=== PATIENT | female | born 1965 | race Two or more races ===

== ENCOUNTER → 2016-08-13 | Outpatient (CLI) | payer OTHER ==
[2016-01-04 12:45] VITALS: BP 127/68
[~2016-08-13] MED LIST: ALPR1TAB2 PO; ASPI81TA44 PO; ATORVASTATIN CA80 MG PO; METO75TA PO; MV W1TAB PO; NORE1TAB23 PO; OMEG1CAP38 PO; PANT40TA3 PO
--- NOTE | 2016-08-13 13:03 | RAD ---
INDICATION: COUGH, DIARRHEA COMPARISON: 01/04/2016 FINDINGS: 2 views of chest obtained No definite focal airspace consolidation or pulmonary edema. Repeat demonstration of faintly seen nodular densities within the bilateral lungs. IMPRESSION: No new region of airspace consolidation. Faintly seen nodular densities of bilateral lungs. This is better evaluated on CT.
== END | disposition home or self-care (01) ==
LOC: RAD 11:15
PROVIDERS: ATTEND Physician Assistant Medical
DX: R05 Cough (principal); R19.7 Diarrhea, unspecified; Z85.118 Personal history of other malignant neoplasm of bronchus and lung
CPT/HCPCS: 71020

== ENCOUNTER → 2016-09-06 | Outpatient (CLI) | payer OTHER ==
[2016-01-04 12:45] VITALS: BP 127/68
--- NOTE | 2016-09-06 14:04 | KCIC ---
Bilateral digital screening mammograms with CAD: HISTORY Routine screening. COMPARISON Comparison is made to previous studies dated back to 07/16/2012. FINDINGS Breast density category B. The skin and nipples show no abnormalities. No abnormal lymph nodes are seen in the axilla. The breast parenchyma shows scattered fibroglandular density. There are no dominant masses, suspicious calcifications or architectural distortions. IMPRESSION No evidence of malignancy. Recommend routine annual mammographic screening. This study was interpreted with the benefit of Computerized Aided Detection (CAD). Mammography is not 100% sensitive in detecting breast cancer. Therefore, a self breast exam and a clinical breast exam are very important. A negative mammogram does not negate a clinically suspicious finding and should not result in a delay in biopsying a clinically suspicious abnormality. BI-RADS category 1. Negative. This patient's information has been entered into a reminder system for the patient to be notified with the results of this examination and a target date for her next mammograms. Electronically signed by: Yarelis Mishra MD (Sep 06, 2016 14:03:00)
== END | disposition home or self-care (01) ==
LOC: KCIC MAMMO 08:00
PROVIDERS: ATTEND Obstetrics & Gynecology
DX: Z12.31 Encounter for screening mammogram for malignant neoplasm of breast (principal)
CPT/HCPCS: G0202; 77067

== ENCOUNTER → 2017-02-15 | Outpatient (CLI) | payer OTHER ==
[2016-01-04 12:45] VITALS: BP 127/68
--- NOTE | 2017-02-15 10:18 | RAD ---
CT chest without contrast 02/15/2017 at 0835 hours Indication: Lung nodules follow-up Comparison: CT chest 05/14/2016, 02/06/2016, 12/05/2015 Technique: Multiple axial CT images of the chest were obtained without intravenous contrast. Coronal and sagittal reformats are provided. Findings: Thyroid gland is normal. No pathologically enlarged axillary lymph nodes are identified. There is a right precarinal lymph node measuring 10 mm by short axis. A subcarinal lymph node measures 14 mm by short axis. Prevascular lymph node measures 5 mm by short axis. Suspect right hilar lymph node measuring 9 mm by short axis. In the region of a previously 12 x 11 mm noncalcified pulmonary nodule on 12/15/2015 in the lingula, there is minimal residual 5 mm opacity. Additional solid pulmonary nodules are stable since 12/15/2015, as detailed below. In the right upper lobe there is a 5 x 5 mm solid noncalcified pulmonary nodule (series 3, image 69). In the right middle lobe there is a 6.4 x 6.1 mm solid noncalcified pulmonary nodule (series 3, image 147). There is an 8.0 x 7.4 cm solid noncalcified pulmonary nodule posterior right lower lobe (series 3, image 140). There is a solid noncalcified pulmonary nodule in the lingula measuring 6.4 x 5.8 mm (series 3, image 174). In the left upper lobe there is a 6.8 x 7.6 mm noncalcified pulmonary nodule (series 3, image 149). In the anterior left upper lobe there is a 7.3 mm x 7.5 mm solid noncalcified pulmonary nodule (series 3, image 174). No pulmonary infiltrates. No pulmonary vascular congestion or pneumothorax. Otherwise, lungs are clear. Cholecystectomy changes are identified in the right upper quadrant. There are no pathologically enlarged lymph nodes in the visualized upper abdomen. Focal sclerotic focus involving the right lateral fifth rib is noted (series 3, image 136), stable dating back to 05/14/2016. This finding measures 12 mm on sagittal views (series 6, image 94). Impression: 1. In the region of previously 12 x 11 mm noncalcified pulmonary nodule that was biopsied, there is 5 mm residual amorphous patchy opacity. 2. Additional solid noncalcified pulmonary nodules are stable, as detailed above. 3. Sclerotic focus involving the right lateral fifth rib is stable without associated aggressive features. If there is clinical concern, further evaluation with bone scan may be of benefit. PQRS Compliance Statement: One or more of the following individualized dose reduction techniques were utilized for this examination: 1. Automated exposure control 2. Adjustment of the mA and/or kV according to patient size 3. Use of iterative reconstruction technique
== END | disposition home or self-care (01) ==
LOC: CT 08:20
PROVIDERS: ATTEND Internal Medicine Pulmonary Disease
DX: R91.8 Other nonspecific abnormal finding of lung field (principal)
CPT/HCPCS: 71250

== ENCOUNTER → 2017-09-09 | Outpatient (CLI) | payer OTHER | END | disposition home or self-care (01) | LOC: KCIC MAMMO 13:29 | DX: Z12.31 Encounter for screening mammogram for malignant neoplasm of breast (principal) | CPT/HCPCS: 77063; 77067 ==

== ENCOUNTER → 2017-10-03 | Outpatient (CLI) | payer OTHER ==
[2017-10-03 07:40] LABS: ADD MAN DIFF? NO
[2017-10-03 07:47] LABS: BASO # 0.1 x10^3/uL (0.0-0.2); BASO % 1 % (0-3); EOS # 0.2 x10^3/uL (0.0-0.7); EOS % 3 % (0-3); HEMOGLOBIN 13.6 g/dL (12.0-15.5); LYMPH # 2.7 x10^3/uL (1.0-4.8); LYMPH % 31 % (24-48); MEAN CORPUSCULAR HEMOGLOBIN 31 pg (25-35); MEAN CORPUSCULAR HGB CONC 33 g/dL (31-37); MEAN CORPUSCULAR VOLUME 92 fL (79-100); MONO # 0.7 x10^3/uL (0.0-1.1); MONO % 8 % (0-9); NEUT # 4.9 x10^3uL (1.8-7.7); NEUT % 57 % (31-73); PLATELET COUNT 204 x10^3/uL (140-400); RED BLOOD COUNT 4.46 x10^6/uL (3.50-5.40); RED CELL DISTRIBUTION WIDTH 14.5 % (11.5-14.5); WHITE BLOOD COUNT 8.5 x10^3/uL (4.0-11.0)
[2017-10-03 08:59] LABS: ALBUMIN 3.4 g/dL (3.4-5.0); ALBUMIN/GLOBULIN RATIO 0.9 (1.0-1.7); ALK PHOS 90 U/L (46-116); ALT (SGPT) 31 U/L (14-59); ANION GAP 12 (6-14); AST (SGOT) 21 U/L (15-37); BLOOD UREA NITROGEN 11 mg/dL (7-20); BUN/CREATININE RATIO 12 (6-20); CALCIUM 8.9 mg/dL (8.5-10.1); CARBON DIOXIDE 24 mmol/L (21-32); CHLORIDE 105 mmol/L (98-107); CHOLESTEROL 133 mg/dL (0-200); CREATININE 0.9 mg/dL (0.6-1.0); GFR 66.3; GLUCOSE 98 mg/dL (70-99); HDLC 30 mg/dL (40-60); LDLC 40 mg/dL (0-100); NON-HDL CHOLESTEROL 103 mg/dL (0-129); POTASSIUM 4.3 mmol/L (3.5-5.1); SODIUM 141 mmol/L (136-145); TOTAL BILIRUBIN 0.3 mg/dL (0.2-1.0); TOTAL PROTEIN 7.4 g/dL (6.4-8.2); TRIGLYCERIDES 313 mg/dL (0-150); VLDLC 63 mg/dL (0-40)
[2017-10-03 09:00] LABS: CHOLESTEROL/HDL RATIO 4.4
[2017-10-04 02:13] LABS: HEMOGLOBIN A1C 5.7 % (4.8-5.6)
== END | disposition home or self-care (01) ==
LOC: LAB 07:25
DX: E78.2 Mixed hyperlipidemia (principal); R53.83 Other fatigue; Z79.899 Other long term (current) drug therapy
CPT/HCPCS: 36415; 80053; 80061; 83036; 85025

== ENCOUNTER → 2018-09-05 | Outpatient (CLI) | payer OTHER ==
[2016-01-04 12:45] VITALS: BP 127/68
[~2018-09-05] MED LIST changes: -ASPI81TA44 PO; +ASPI81TA59 PO
== END | disposition home or self-care (01) ==
LOC: SPEC 15:11
PROVIDERS: ATTEND Family Medicine
DX: Z01.419 Encounter for gynecological examination (general) (routine) without abnormal findings (principal)
CPT/HCPCS: 88175

== ENCOUNTER → 2018-09-19 | Outpatient (CLI) | payer OTHER ==
[2016-01-04 12:45] VITALS: BP 127/68
--- NOTE | 2018-09-19 17:16 | KCIC ---
Bilateral digital screening mammograms with 3-D tomosynthesis: Reason for examination: Routine screening. Comparison is made to previous studies dated back to 08/29/2015. Bilateral mammograms in CC and oblique projections were obtained with 2-D imaging and 3-D tomosynthesis imaging on a Siemens Inspiration unit and reviewed on the workstation. Interpretation was made with the benefit of CAD. The skin and nipples show no abnormalities. No abnormal axillary lymph nodes are seen. The breast parenchyma shows scattered fatty and fibroglandular density. (Breast density: Category B.) There continues to be small nodular parenchymal density in the left breast at the central 3:00 position which is unchanged. There are no new dominant masses, suspicious calcifications or architectural distortion. Impression: No evidence of malignancy. Recommend routine screening. BI-RAD Category 2: Benign. "Our facility is accredited by the [employer] Mammography Program." This patient's information has been entered into a reminder system for the patient to be notified with the results of her examination and a target date for the next mammogram. Electronically signed by: Lashanda Mishra MD (09/19/2018 5:13 PM) [id number]
== END | disposition home or self-care (01) ==
LOC: KCIC MAMMO 13:12
PROVIDERS: ATTEND Obstetrics & Gynecology
DX: Z12.31 Encounter for screening mammogram for malignant neoplasm of breast (principal)
CPT/HCPCS: 77063; 77067

== ENCOUNTER → 2019-03-16 | Outpatient (CLI) | payer OTHER ==
[2016-01-04 12:45] VITALS: BP 127/68
[~2019-03-16] MED LIST changes: -PANT40TA3 PO; +PANT40TA77 PO
== END | disposition home or self-care (01) ==
LOC: SPEC 10:19
PROVIDERS: ATTEND Nurse Practitioner Women's Health
DX: R87.810 Cervical high risk human papillomavirus (HPV) DNA test positive (principal)
CPT/HCPCS: 87623; 88175

== ENCOUNTER → 2019-04-24 | Outpatient (CLI) | payer OTHER ==
[2016-01-04 12:45] VITALS: BP 127/68
== END | disposition home or self-care (01) ==
LOC: LAB 07:26
PROVIDERS: ATTEND Family Medicine
DX: E78.49 Other hyperlipidemia (principal)
CPT/HCPCS: 36415; 80061

== ENCOUNTER 2019-05-07 06:57 | Day surgery (SDC) | payer OTHER ==
[~2019-05-07 06:57] MED LIST changes: +METO-269 PO; +METO25TA2 PO; +RANI-376 PO
[2019-05-07] MEDS ORDERED: HYDROmorphone 2 MG/ML VIAL IV PRN (07:00)
[2019-05-07] MEDS ORDERED: IV RINGERS,LACTATED 1000ML 1,000 ML IV SCH (07:00)
[2019-05-07] MEDS ORDERED: ONDANSETRON PF 4 MG/2 ML VIAL. IV PRN (07:00)
[2019-05-07] MEDS ORDERED: MORPHINE SULFATE 2 MG/ML VIAL. IV PRN (07:00)
[2019-05-07] MEDS ORDERED: PROCHLORPERAZINE 10 MG/2 ML VIAL. IV PRN (07:00)
[2019-05-07] MEDS ORDERED: LIDOCAINE 1% PF 2 ML VIAL. ID PRN (07:00)
[2019-05-07] MEDS ORDERED: fentaNYL PF VIAL 100 MCG/2 ML VIAL IV PRN (07:00)
[2019-05-07] MEDS ORDERED: DEXAMETHASONE SOD PHOS 4 MG/ML VIAL ONE (07:22)
[2019-05-07] MEDS ORDERED: LIDOCAINE 2% PF 5 ML VIAL. ONE (07:22)
[2019-05-07] MEDS ORDERED: ONDANSETRON PF 4 MG/2 ML VIAL. ONE (07:22)
[2019-05-07] MEDS ORDERED: PROPOFOL 20 ML IV ONE (07:22)
[2019-05-07] MEDS ORDERED: FERRIC SUBSULFATE 8 ML SOL.W.APPL TP ONE (07:52)
[2019-05-07 07:58] LABS: BASO % 1 % (0-3); EOS # 0.2 x10^3/uL (0.0-0.7); EOS % 3 % (0-3); HEMATOCRIT 39.2 % (36.0-47.0); HEMOGLOBIN 13.2 g/dL (12.0-15.5); LYMPH # 2.1 x10^3/uL (1.0-4.8); LYMPH % 35 % (24-48); MEAN CORPUSCULAR HEMOGLOBIN 31 pg (25-35); MEAN CORPUSCULAR HGB CONC 34 g/dL (31-37); MEAN CORPUSCULAR VOLUME 92 fL (79-100); MONO # 0.4 x10^3/uL (0.0-1.1); MONO % 8 % (0-9); NEUT # 3.2 x10^3/uL (1.8-7.7); NEUT % 54 % (31-73); PLATELET COUNT 176 x10^3/uL (140-400); RED BLOOD COUNT 4.27 x10^6/uL (3.50-5.40); RED CELL DISTRIBUTION WIDTH 15.2 % (11.5-14.5); WHITE BLOOD COUNT 5.9 x10^3/uL (4.0-11.0)
[2019-05-07] MEDS ORDERED: MIDAZOLAM HCL/PF 2 MG/2 ML VIAL. ONE (07:59)
[2019-05-07] MEDS ORDERED: BUPIVACAINE-EPI 0.25%-1:200000 MPF 30 ML VIAL. INJ ONE ×2 (08:00)
[2019-05-07 08:01] LABS: BILIRUBIN,URINE NEGATIVE (NEG); CLARITY,URINE CLEAR; COLOR,URINE YELLOW; NITRITE,URINE NEGATIVE (NEG); PROTEIN,URINE NEGATIVE (NEG-TRACE); UROBILINOGEN,URINE 0.2 mg/dL (0.2 mg/dL)
[2019-05-07] MEDS ORDERED: SCOPOLAMINE 1.5MG PATCH. TD ONE ×2 (08:04→10:00)
[2019-05-07] MEDS ORDERED: FAMOTIDINE 20 MG/2 ML VIAL ONE (08:25)
[2019-05-07] MEDS ORDERED: KETOROLAC 30 MG/ML VIAL. ONE (08:25)
[2019-05-07 08:28] LABS: BACTERIA,URINE MODERATE /HPF (0-FEW); RBC,URINE 0 /HPF (0-2)
[2019-05-07] MEDS ORDERED: ePHEDrine PF IN SALINE 50 MG/10 ML SYRINGE. IV ONE (08:28)
[2019-05-07] MEDS ORDERED: POTASSIUM IODIDE/IODINE 14 ML SOLUTION. TP ONE (08:45)
[2019-05-07] MEDS ORDERED: SEVOFLURANE 31 TO 60 MINUTES. IH ONE (08:49)
--- NOTE | 2019-05-07 09:11 | PDOC ---
BRIEF OPERATIVE NOTE Date: May 07, 2019 Pre-Op Diagnosis DALILA 2, high risk HPV Post-Op Diagnosis same Procedure Performed LEEP Surgeon Dr. Katie Salinas Anesthesiologist Dr. Coleman Anesthesia Type: General Blood Loss <10 IV Fluid see anesthesia records Urine Output straight cath prior to procedure Specimens Obtained ectocervix Findings large TZ Complications none Operative Note [id number] KATIE SALINAS MD May 07, 2019 09:11
[2019-05-07] MEDS ORDERED: SIMETHICONE 80 MG TAB.CHEW PO PRN (09:15)
[2019-05-07] MEDS ORDERED: MAG HYDROX/ALUMINUM HYD/SIMETH 30 ML ORAL.SUSP PO PRN (09:15)
[2019-05-07] MEDS ORDERED: diphenhydrAMINE 50 MG/ML VIAL IV PRN (09:15)
[2019-05-07] MEDS ORDERED: 0.9 % SODIUM CHLORIDE 10 ML DISP.SYRIN. IV PRN (09:15)
[2019-05-07] MEDS ORDERED: NALOXONE 0.4 MG/ML VIAL. IV PRN (09:15)
[2019-05-07] MEDS ORDERED: CALCIUM CARBONATE 500 MG TAB.CHEW PO PRN (09:15)
[2019-05-07] MEDS ORDERED: diphenhydrAMINE HCL 25 MG CAPSULE PO PRN (09:15)
[2019-05-07] MEDS ORDERED: HYDROcodone/APAP 5/325MG 1 TAB TABLET PO PRN (09:15)
--- NOTE | 2019-05-07 09:20 | OP ---
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 PROCEDURE: Loop electrosurgical excision procedure (LEEP). SURGEON: Farhana Salinas MD PROTECTIVE SIGNAL REPAIRER: OR personnel. ANESTHESIOLOGIST: Reymundo Coleman MD ANESTHESIA: General. ESTIMATED BLOOD LOSS: Less than 10. URINE OUTPUT: With a straight cath prior to procedure. Please see anesthesia for IV fluids. SPECIMEN: Ectocervical specimen, superior and inferior. FINDINGS: She had a large shallow transformation zone that did not accept the Lugol's. COMPLICATIONS: None. DESCRIPTION OF PROCEDURE: This patient was taken to the operating room where general anesthesia was placed. The patient was placed in dorsal lithotomy position in Serjio stirrups. The patient's vagina was prepped and draped in the normal sterile fashion and straight cath urine was done prior to my arrival. Upon my arrival, a timeout was performed. Once everyone agreed, a laser safe speculum was placed in the patient's vagina. Lugol solution was used to delineate the abnormal areas of the cervix. She had a broad shallow transformation zone that did not accept Lugol's. The remainder of the cervix . At this point, a loop was picked, cut was set on 70, coags set on 50. Top half and bottom half were taken off and then the ball cautery was used on coag to obtain hemostasis. Once this was done, the procedure was ended. Specimen will be sent in formalin. The patient tolerated the procedure well and was taken to recovery room in stable condition. FARHANA SALINAS MD DR: EDITH/addi JOB#: [id number] / [id number]
[2019-05-07] MEDS ORDERED: fentaNYL PF VIAL 100 MCG/2 ML VIAL ONE (09:53)
[2019-05-07] MEDS: fentaNYL PF VIAL 100 MCG/2 ML VIAL IV PRN ×2 (10:03→10:09)
[2019-05-10] MEDS ORDERED: SCOPOLAMINE 1.5MG PATCH. TD SCH (09:00)
--- NOTE | 2019-05-11 13:07 | PATHOLOGY ---
[facility] Accession Number: [id number] . 01 Material submitted: . ectocervix - ECTOCERVICAL SPECIMEN . 01 Clinical history: . None provided . 02 Diagnosis: "Ectocervical specimen", LEEP excision: - ENDO AND ECTOCERVICAL TISSUE WITH HIGH GRADE SQUAMOUS INTRAEPITHELIAL LESION (H-ASHLEY, SEVERE SQUAMOUS DYSPLASIA, DALILA-III) WITH ENDOCERVICAL GLANDULAR EXTENSION; INVOLVING THE ENDOCERVICAL INKED SURGICAL MARGIN. (SEE COMMENT) . (CLW:jack; 05/08/2019) [facility] 05/11/2019 1226 Local . 02 Comment: A properly-controlled immunohistochemical stain is performed: . P16 (block A2): reactive. . The case is co-reviewed with Dr. Yayo Sandoval. Clinical correlation is recommended. . (CLW:ashish; 05/08/2019) . 02 Electronically signed: . Juli Gayle MD, Pathologist NPI- [id number] . 01 Gross description: . The specimen is received in formalin, labeled "Lucio, Shannon, ectocervical specimen" and consists of 3 unoriented segments of pink-harris cervix measuring between 1.4 x 1.3 x 0.6 cm and 2.6 x 1.4 x 0.6 cm. The identifiable proximal aspect is inked blue and the ectocervical rim's black. They are serially sectioned and entirely submitted in A1-A4. (SDY; 05/07/2019) [facility]U 05/07/2019 1539 Local . 02 Pathologist provided ICD-10: R87.613, D06.9 . 02 CPT . 956075, P26010 Specimen Comment: A courtesy copy of this report has been sent to [phone], [phone] Specimen Comment: [id number] Specimen Comment: Report sent to / DR BANKS Performed at: [address], [place] [id number] MD Ridge Kumari MD Phone: [phone] Performed at: 02 [facility] [address] [place], [place] [id number] MD Yayo Sandoval MD Phone: [phone]
== END 2019-05-07 10:37 | disposition home or self-care (01) ==
LOC: SURG 06:57
PROVIDERS: ATTEND Obstetrics & Gynecology
DX: N87.1 Moderate cervical dysplasia (principal); I10 Essential (primary) hypertension; K21.9 Gastro-esophageal reflux disease without esophagitis; F41.9 Anxiety disorder, unspecified; E78.00 Pure hypercholesterolemia, unspecified; Z87.891 Personal history of nicotine dependence; Z90.49 Acquired absence of other specified parts of digestive tract; Z79.899 Other long term (current) drug therapy; Z87.39 Personal history of other diseases of the musculoskeletal system and connective tissue; Z72.89 Other problems related to lifestyle; Z88.1 Allergy status to other antibiotic agents
CPT/HCPCS: 36415; 57522; 81001; 81025; 85025; 87086; 88307; 88342; A7015; J0171; J1100; J1885; J2001; J2250; J2405; J2704; J3010; J3490

== ENCOUNTER → 2019-06-16 | Outpatient (CLI) | payer OTHER ==
--- NOTE | 2019-06-16 14:32 | RAD ---
EXAM: Pelvic sonogram. HISTORY: Abnormal Pap smear. Preoperative evaluation. TECHNIQUE: Transabdominal and transvaginal sonographic imaging of the pelvis was performed. COMPARISON: None. FINDINGS: The uterus it is retroverted and measures 6.0 x 3.2 x 4.2 cm. The endometrial stripe is heterogeneous and measures 5.6 mm in thickness. The ovaries are normal in size and demonstrate normal blood flow. There are nabothian cysts within the cervix. There are suspected calcifications within the cervix. There is an 8 mm suspected uterine fibroid. IMPRESSION: 1. Heterogeneous endometrium measuring 5.6 mm in thickness. This is at the upper limits of normal or mildly thickened for the reported postmenopausal/post ablation status of the patient. 2. Cervical nabothian cysts and suspected cervical calcifications. No mass is seen. 3. Small suspected uterine fibroid. Electronically signed by: Glenna Fatima MD (06/16/2019 2:29 PM) [id number]
== END | disposition home or self-care (01) ==
LOC: US 13:06
PROVIDERS: ATTEND Obstetrics & Gynecology
DX: N88.8 Other specified noninflammatory disorders of cervix uteri (principal); D06.9 Carcinoma in situ of cervix, unspecified
CPT/HCPCS: 76830; 76856

== ENCOUNTER → 2019-08-14 | Outpatient (CLI) | payer OTHER ==
[~2019-08-14] MED LIST changes: +PARO25TA11 PO
[2019-08-14 13:14] LABS: BASO % 1 % (0-3); EOS # 0.2 x10^3/uL (0.0-0.7); EOS % 2 % (0-3); HEMOGLOBIN 13.8 g/dL (12.0-15.5); LYMPH # 1.9 x10^3/uL (1.0-4.8); LYMPH % 29 % (24-48); MEAN CORPUSCULAR HEMOGLOBIN 31 pg (25-35); MEAN CORPUSCULAR HGB CONC 34 g/dL (31-37); MEAN CORPUSCULAR VOLUME 92 fL (79-100); MONO # 0.6 x10^3/uL (0.0-1.1); MONO % 9 % (0-9); NEUT # 3.8 x10^3/uL (1.8-7.7); NEUT % 58 % (31-73); PLATELET COUNT 172 x10^3/uL (140-400); RED BLOOD COUNT 4.47 x10^6/uL (3.50-5.40); RED CELL DISTRIBUTION WIDTH 14.5 % (11.5-14.5); WHITE BLOOD COUNT 6.4 x10^3/uL (4.0-11.0)
--- NOTE | 2019-08-14 13:17 | EKG ---
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
[2019-08-14 13:30] LABS: ALBUMIN 3.9 g/dL (3.4-5.0); CALCIUM 9.7 mg/dL (8.5-10.1); CREATININE 0.8 mg/dL (0.6-1.0); GFR 75.6; POTASSIUM 3.9 mmol/L (3.5-5.1); TOTAL BILIRUBIN 0.3 mg/dL (0.2-1.0); TOTAL PROTEIN 7.9 g/dL (6.4-8.2)
--- NOTE | 2019-08-14 15:33 | RAD ---
PA and lateral chest x-ray compared to CT scan of the chest dated February 15, 2017 for history of lung nodules, presurgical evaluation. FINDINGS: There are a few subcentimeter lung nodules distributed throughout both lung welsh, most prominent on the right. These correspond grossly in size and location to lung nodule seen on the prior CT scan. No interval growth is apparent and no new lung nodules are evident. Heart size within normal limits. No soft tissue or osseous abnormalities. IMPRESSION: 1. Multiple subtle bilateral peripheral lung nodules, grossly stable with no new lung nodules identified. Electronically signed by: Dar Montanez MD (08/14/2019 3:30 PM) [id number]
[2019-08-15 01:08] LABS: ESTRADIOL LEVEL 15.7 pg/mL (.); FSH 67.5 mIU/mL (.)
== END | disposition home or self-care (01) ==
LOC: SURGPAT 12:16
PROVIDERS: ATTEND Obstetrics & Gynecology
DX: Z01.818 Encounter for other preprocedural examination (principal); I10 Essential (primary) hypertension; R91.8 Other nonspecific abnormal finding of lung field; Z88.2 Allergy status to sulfonamides
CPT/HCPCS: 36415; 71046; 80053; 82670; 83001; 85025; 93005

== ENCOUNTER 2019-08-20 06:03 | Observation (INO) | payer OTHER ==
[~2019-08-20] VITALS: Ht 152.4 cm; Wt 74.0 kg
[2019-08-20] VITALS (10 sets, daily range): BP systolic 108–141; BP diastolic 54–79
[2019-08-20] MEDS ORDERED: SCOPOLAMINE 1.5MG PATCH. TD ONE (06:30)
[2019-08-20] MEDS: IV RINGERS,LACTATED 1000ML 1,000 ML IV SCH ×2 (06:33→10:20)
[2019-08-20] MEDS ORDERED: PROCHLORPERAZINE 10 MG/2 ML VIAL. IV PRN (07:00)
[2019-08-20] MEDS ORDERED: fentaNYL PF VIAL 100 MCG/2 ML VIAL IV PRN ×2 (07:00)
[2019-08-20] MEDS ORDERED: MORPHINE SULFATE 2 MG/ML VIAL. IV PRN ×2 (07:00→10:15)
[2019-08-20] MEDS ORDERED: ONDANSETRON PF 4 MG/2 ML VIAL. IV PRN ×2 (07:00→10:15)
[2019-08-20] MEDS ORDERED: HYDROmorphone 2 MG/ML VIAL IV PRN (07:00)
[2019-08-20] MEDS ORDERED: BUPIVACAINE-EPI 0.25%-1:200000 MPF 30 ML VIAL. ONE (07:06)
[2019-08-20] MEDS ORDERED: ESTROGENS, CONJ VAGINAL CREAM 30GM TUBE. ONE (07:06)
[2019-08-20] MEDS ORDERED: INDIGOTINDISULFONATE SODIUM 40 MG/5 ML AMPUL. ONE (07:07)
[2019-08-20] MEDS ORDERED: ROCURONIUM 100 MG/10 ML VIAL. ONE (07:13)
[2019-08-20] MEDS ORDERED: ROCURONIUM 50 MG/5 ML VIAL. ONE (07:14)
[2019-08-20] MEDS ORDERED: DEXAMETHASONE SOD PHOS 4 MG/ML VIAL ONE (07:15)
[2019-08-20] MEDS ORDERED: FAMOTIDINE 20 MG/2 ML VIAL ONE (07:15)
[2019-08-20] MEDS ORDERED: LIDOCAINE 2% PF 5 ML VIAL. ONE (07:15)
[2019-08-20] MEDS ORDERED: fentaNYL PF VIAL 100 MCG/2 ML VIAL ONE (07:15)
[2019-08-20] MEDS ORDERED: PROPOFOL 20 ML IV ONE (07:15)
[2019-08-20] MEDS ORDERED: ONDANSETRON PF 4 MG/2 ML VIAL. ONE (07:15)
[2019-08-20] MEDS ORDERED: MIDAZOLAM HCL/PF 2 MG/2 ML VIAL. ONE (07:16)
[2019-08-20] MEDS ORDERED: GLYCOPYRROLATE 1 MG/5 ML VIAL. ONE (09:11)
[2019-08-20] MEDS ORDERED: NEOSTIGMINE 10 MG/10 ML VIAL. ONE (09:11)
[2019-08-20] MEDS ORDERED: SEVOFLURANE > 120 MINUTES. IH ONE (09:59)
--- NOTE | 2019-08-20 10:07 | PDOC ---
BRIEF OPERATIVE NOTE Date: Aug 20, 2019 Pre-Op Diagnosis DALILA 3 Post-Op Diagnosis same Procedure Performed LAVH/BSO Surgeon Dr. Katie Xie Medical Lab Scientist STEWART Ulloa Anesthesiologist Dr. Gilbert Anesthesia Type: General Blood Loss 30cc IV Fluid 1L Urine Output 330cc clear via gillette Specimens Obtained cervix, uterus, bilateral tubes and ovaries Findings mildly enlarged fibroid uterus, old endometriosis, normal bilateral tubes and ovaries Complications none Operative Note [id number] KATIE XIE MD Aug 20, 2019 10:07
[2019-08-20] MEDS ORDERED: LACTULOSE 20 GM/30 ML SOLUTION. PO PRN (10:15)
[2019-08-20] MEDS ORDERED: CALCIUM CARBONATE 500 MG TAB.CHEW PO PRN (10:15)
[2019-08-20] MEDS ORDERED: MAG HYDROX/ALUMINUM HYD/SIMETH 30 ML ORAL.SUSP PO PRN (10:15)
[2019-08-20] MEDS ORDERED: SIMETHICONE 80 MG TAB.CHEW PO PRN (10:15)
[2019-08-20] MEDS ORDERED: MAGNESIUM HYDROXIDE 2,400 MG/30 ML ORAL.SUSP. PO PRN (10:15)
[2019-08-20] MEDS ORDERED: HYDROcodone/APAP 5/325MG 1 TAB TABLET PO PRN (10:15)
[2019-08-20] MEDS ORDERED: oxyCODONE/APAP 5/325 1 TAB TABLET PO PRN (10:15)
[2019-08-20] MEDS ORDERED: diphenhydrAMINE HCL 25 MG CAPSULE PO PRN (10:15)
[2019-08-20] MEDS ORDERED: diphenhydrAMINE 50 MG/ML VIAL IV PRN (10:15)
[2019-08-20] MEDS ORDERED: NALOXONE 0.4 MG/ML VIAL. IV PRN (10:15)
[2019-08-20] MEDS ORDERED: 0.9 % SODIUM CHLORIDE 10 ML DISP.SYRIN. IV PRN (10:15)
[2019-08-20] MEDS ORDERED: ZOLPIDEM 5 MG TABLET. PO PRN (10:15)
--- NOTE | 2019-08-20 10:59 | OP ---
DATE OF SURGERY: 08/20/2019 PREOPERATIVE DIAGNOSIS: Cervical intraepithelial neoplasia 3, 2 on biopsy, 3 on LEEP specimen. POSTOPERATIVE DIAGNOSIS: Cervical intraepithelial neoplasia 3, 2 on biopsy, 3 on LEEP specimen. PROCEDURE: Laparoscopic-assisted vaginal hysterectomy, bilateral salpingo-oophorectomy. SURGEON: Farhana Xie MD MANAGER LABOR RELATIONS: Patricia Vuong. ANESTHESIOLOGIST: Dr. Gilbert. ANESTHESIA: General. ESTIMATED BLOOD LOSS: 30 mL. FLUIDS: 1 liter of crystalloid. URINE OUTPUT: 330 mL clear via Villegas catheter. SPECIMEN REMOVED: Cervix, uterus, bilateral tubes, and ovaries. FINDINGS: A mildly enlarged fibroid uterus, old endometriosis, but normal bilateral tubes and ovaries. COMPLICATIONS: None. DESCRIPTION OF PROCEDURE: This patient was taken to the operating room where general anesthesia was placed. The patient was placed in dorsal lithotomy position in Serjio stirrups. The patient's abdomen and vagina were both prepped and draped in the normal sterile fashion and a Villegas catheter had been inserted under sterile technique. Upon my arrival, a timeout was performed. Once everyone agreed and she had received her preoperative antibiotics, a bivalve speculum was placed in the patient's vagina. A single-tooth tenaculum was used to grasp the anterior lip of the cervix. A 10-12 mL of 0.25% Marcaine with epinephrine was used to circumferentially inject around the cervix for both hemodissection and hemostatic purposes later. The Valtchev uterine manipulator was placed through the endocervical os, locked on the single tooth tenaculum and the bivalve speculum was then removed. Top gloves were discarded and changed. Attention was then turned to the abdomen where a small infraumbilical skin incision was made over an existing scar. A curved Yael was used to dissect through the subcuticular layer to the fascia. The 5 mm Visiport was used to directly enter the abdominal cavity. Opening patient pressure was 3-4 mmHg. Carbon dioxide gas was used to then appropriately insufflate the abdominal cavity to maintain a pressure of 15 mmHg. The patient was placed in Trendelenburg position. Right and left lower quadrant ports were placed after transilluminating the abdominal wall, finding an area clear of any vasculature and she had no adhesions on either of these, making a small incision and placing the 5 mm disposable atraumatic trocar under direct visualization. The 4-5 mL of air was used to insufflate the trocar cuff on both sides. The scope was then moved laterally to look at the umbilical port. Once it was assured to be in correct placement, 4-5 mL of air was used to insufflate the cuff on the spleen as well. Again, the patient was in Trendelenburg, so the left tube and ovary were elevated. The ureter was seen coursing low in the pelvis. The right tube and ovary were elevated and the ureter was identified on this side easily as well, down low and out of the way. So, starting on the left side, crossing the infundibulopelvic ligament, cauterizing with the LigaSure and cutting following all the way over to the cornua of the uterus and then crossing the round ligament next to the uterus, cauterizing and cutting, this was done exactly the same on the right, first starting at the IP ligament, hugging the ovary, well above the ureter, crossing it, going over under the tube, going over towards the uterus crossing the right round ligament as well, cauterizing and cutting with the LigaSure. On this side, the bladder flap was started sharply. The uterus was pushed cephalad with the uterine manipulator and put on stretch. The [place] was used to gently grasp the anterior bladder peritoneum and elevated and the monopolar hook was used to incise and sharply cut the bladder flap. This was then taken down under direct visualization sharply and bluntly. Once it was down, the uterine vessels were obtained on the patient's right side than the left side, staying inside that pedicle on the left side, staying vertical hugging the uterus through the cardinal and broad ligaments, cauterizing and cutting until I was down to the level of the uterosacral and then staying inside that pedicle on the right side as well, especially going posterior, hugging the uterus and getting down to the level of the uterosacral. Once this was done, the uterus was completely free and blanched. All instruments were removed and attention was turned vaginally. The single tooth and Valtchev were removed. A weighted speculum was placed in the patient's vagina. Thyroid Jing clamps were placed on the anterior and posterior lips of the cervix respectively. A scalpel was used to make a circumferential incision. I went very-very low on the cervix as she had had a previous LEEP and it appeared that the bladder was very low and then going all the way around. The posterior cul-de-sac was sharply entered with curved Sparrow scissors and #0 Vicryl stitch was used to secure the posterior peritoneum here to the vaginal cuff, tagged with a curved Yael clamp and the needle was cut and passed off. Once this was done, it was tagged with a curved Yael. The short-weighted vaginal speculum was removed and replaced with the long-weighted Mo speculum. At this point, taking my finger all the way around, I could see where the bladder flap edge was, I gently used Metzenbaum scissors to sharply enter the anterior cul-de-sac and the curved [place] was placed in here. Once this was done, curved Jaimee clamps x 2 were placed on the patient's left uterosacral ligament. They were doubly clamped with curved Jaimee's, cut with curved Sparrow scissors and suture ligated x 2 with 0 Vicryl. Second one was taken through the vaginal cuff securing uterosacral ligament to the vaginal cuff, tagged with a straight Yael clamp and the needle was cut and passed off. This was done exactly the same on the right side, double clamping the uterosacrals with curved Jaimee's, cutting with curved Sparrow scissors, suture ligating x 2 with 0 Vicryl, taking the second one through the vaginal cuff, securing uterosacral ligament to the vaginal cuff, tagging it with a straight Yael clamp and cutting and passing the needle off. Once this was done, the remaining pedicles were delineated with a curved right angle Mixter clamp and the vaginal LigaSure was used to cauterize and cut the remaining pedicles. Cervix, uterus, bilateral tubes and ovaries were delivered in total and passed off for permanent pathology. A long Allis was used to grasp the anterior bladder peritoneum. A sponge stick was used to examine all the pedicles. I did reinforce the pedicle on the left side as this is the one that tore as I was trying to burn and cut it. It was just on stretch and it just released just to make sure there was nothing here, but it looked great. I did put a reinforcing interrupted stitch on the posterior peritoneum to the vaginal cuff on both sides just making sure it was kept bleeding and everything else was fine. I did clear out all clots and debris from the posterior cul-de-sac, which there was not really any. I reexamined all the pedicles and they were dry. Long Mo speculum had been removed at this point and replaced with the short-weighted vaginal, that is when I placed cuff sutures in. A full length 2-0 Vicryl was taken through the anterior bladder peritoneum, left uterosacral ligament, posterior peritoneum and right uterosacral ligament, thus closing the peritoneum in a pursestring like fashion. Once this was done, the right and left uterosacral tags were clipped. #2-0 Vicryl was used to close the cuff in an anterior to posterior running locked fashion and it was tied to that posterior cuff tag. Once this was done, a sponge stick was used to examine the vaginal cuff, it was hemostatic, so all instruments were removed. All sponge, lap and needle counts were correct x 2 by OR personnel. All gloves were discarded and changed and attention was turned back above for a second look. The patient was placed back in Trendelenburg. Gas was reinsufflated. Copious irrigation revealed hemostasis. Right and left pericolic gutters were clear. The right upper quadrant looked good. The appendix was seen, which was grossly normal. Copious irrigation returned clear fluid. Tisseel was placed over the cuff. The right and left lower quadrant ports were deflated and removed under direct visualization. These were hemostatic. The cuff remained dry. The 4-5 mL of air was removed from this as well. Gas was removed from the umbilical port. Once this was done, it was removed. All three port sites were closed with 4-0 nylon at the skin and injected with local. The patient was awakened from anesthesia and brought to recovery room in stable condition. FARHANA XIE MD DR: EDITH/addi JOB#: [id number] / [id number]
[2019-08-20] MEDS: PARoxetine 20 MG TABLET PO SCH (11:30)
[2019-08-20] MEDS: FAMOTIDINE 20 MG TABLET. PO SCH ×2 (21:00→21:03)
[2019-08-20] MEDS ORDERED: ATORVASTATIN CALCIUM 40 MG TABLET. PO SCH (21:00)
[2019-08-20] MEDS ORDERED: METOPROLOL SUCC 24HR ER 25 MG TAB.ER.24H. PO SCH (21:00)
[2019-08-20] MEDS: ALPRAZolam 1 MG TABLET PO SCH ×2 (21:03→21:07)
[2019-08-21 05:00] LABS: CALCIUM 8.7 mg/dL (8.5-10.1); CREATININE 0.9 mg/dL (0.6-1.0); POTASSIUM 4.4 mmol/L (3.5-5.1)
[2019-08-21 06:03] VITALS: BP 115/69
--- NOTE | 2019-08-21 08:22 | PDOC ---
SURGICAL PROGRESS NOTE Subjective Doing well without complaints. Scant vag spotting only. +flatus, voiding without catheter. Tolerating regular diet without n/v. minimal pain, mainly gas. Wants to go home Vital Signs Vital Signs Date Time Temp Pulse Resp B/P (MAP) Pulse Ox O2 Delivery O2 Flow Rate FiO2 08/21/19 06:03 97.9 82 115/69 (84) 94 Room Air 97.9 08/20/19 21:00 18 08/20/19 10:15 10 I&O Intake and Output 08/21/19 07:00 Intake Total 3270 ml Output Total 2400 ml Balance 870 ml Intake Oral 2070 ml IV Total 1200 ml Output Urine Total 2380 ml Estimated Blood Loss 20 ml PATIENT HAS A SQUIRES: No General: Alert, Oriented X3, Cooperative, No acute distress HEENT: Atraumatic Heart: Regular rate Abdomen: Soft, No tenderness, Other (all port sites c/d/i) Extremities: No clubbing, No cyanosis, No edema, No tenderness/swelling, Other (neg homans bilaterally) Skin: No rashes, No breakdown Neuro: Normal speech Psych/Mental Status: Mental status NL, Mood NL Labs Laboratory Tests Test 08/21/19 04:30 Hematocrit 36.3 % (36.0-47.0) Sodium Level 144 mmol/L (136-145) Potassium Level 4.4 mmol/L (3.5-5.1) Chloride Level 108 mmol/L (98-107) Carbon Dioxide Level 27 mmol/L (21-32) Anion Gap 9 (6-14) Blood Urea Nitrogen 10 mg/dL (7-20) Creatinine 0.9 mg/dL (0.6-1.0) Estimated GFR (Cockcroft-Gault) 66.0 Glucose Level 125 mg/dL (70-99) Calcium Level 8.7 mg/dL (8.5-10.1) Laboratory Tests Test 08/21/19 04:30 Hematocrit 36.3 % (36.0-47.0) Sodium Level 144 mmol/L (136-145) Potassium Level 4.4 mmol/L (3.5-5.1) Chloride Level 108 mmol/L (98-107) Carbon Dioxide Level 27 mmol/L (21-32) Anion Gap 9 (6-14) Blood Urea Nitrogen 10 mg/dL (7-20) Creatinine 0.9 mg/dL (0.6-1.0) Estimated GFR (Cockcroft-Gault) 66.0 Glucose Level 125 mg/dL (70-99) Calcium Level 8.7 mg/dL (8.5-10.1) I have reviewed the following labs, vitals and nursing Cardiovascular: HTN Pulmonary: No pertinent hx GI: No pertinent hx Heme/Onc: No pertinent hx Psych: No pertinent hx Rheumatologic: No pertinent hx Assessment/Plan POD#1 s/p LAVH/BSO Routine PO care d/c to home later today NPV x 6 weeks Light/limited activity x [address] for one week or while on narcotic pain meds keep scheduled one week follow up with me in office already has narcotic pain meds at home ok for OTC ibuprofen as needed as well call or return sooner for any other questions or concerns not limited to but including pain unrelieved with pain meds, increased or unexplained vaginal bleeding or T>100.4 FARHANA SALINAS MD Aug 21, 2019 08:22
--- NOTE | 2019-08-21 08:24 | PDOC3 ---
Discharge Summary Visit Information Date of Admission: Aug 20, 2019 Date of Discharge: Aug 21, 2019 Final Diagnosis DALILA 3 Brief Hospital Course Allergies Allergies Coded Allergies Type Severity Reaction Last Updated Verified Sulfa (Sulfonamide Antibiotics) Adverse Reaction Intermediate Nausea and Vomiting 08/14/19 Yes adhesive tape Adverse Reaction Intermediate Itching 08/14/19 Yes basil Adverse Reaction Unknown Hives 08/14/19 Yes Vital Signs Vital Signs Date Time Temp Pulse Resp B/P (MAP) Pulse Ox O2 Delivery O2 Flow Rate FiO2 08/21/19 06:03 97.9 82 115/69 (84) 94 Room Air 97.9 08/20/19 21:00 18 08/20/19 10:15 10 Lab Results Laboratory Tests Test 08/21/19 04:30 Hematocrit 36.3 % (36.0-47.0) Sodium Level 144 mmol/L (136-145) Potassium Level 4.4 mmol/L (3.5-5.1) Chloride Level 108 mmol/L (98-107) Carbon Dioxide Level 27 mmol/L (21-32) Anion Gap 9 (6-14) Blood Urea Nitrogen 10 mg/dL (7-20) Creatinine 0.9 mg/dL (0.6-1.0) Estimated GFR (Cockcroft-Gault) 66.0 Glucose Level 125 mg/dL (70-99) Calcium Level 8.7 mg/dL (8.5-10.1) Laboratory Tests Test 08/21/19 04:30 Hematocrit 36.3 % (36.0-47.0) Sodium Level 144 mmol/L (136-145) Potassium Level 4.4 mmol/L (3.5-5.1) Chloride Level 108 mmol/L (98-107) Carbon Dioxide Level 27 mmol/L (21-32) Anion Gap 9 (6-14) Blood Urea Nitrogen 10 mg/dL (7-20) Creatinine 0.9 mg/dL (0.6-1.0) Estimated GFR (Cockcroft-Gault) 66.0 Glucose Level 125 mg/dL (70-99) Calcium Level 8.7 mg/dL (8.5-10.1) Brief Hospital Course Ms. Valdes is a 53 old female who presented with DALILA 3. She underwent and LAVH/BSO yesterday without complications. She is doing well postoperatively with ambulation, diet, voiding, etc. Minimal pain and wants to go home Assessment Assessment POD#1 s/p LAVH/BSO Routine PO care d/c to home later today NPV x 6 weeks Light/limited activity x 2 [address] for one week or while on narcotic pain meds keep scheduled one week follow up with me in office already has narcotic pain meds at home ok for OTC ibuprofen as needed as well call or return sooner for any other questions or concerns not limited to but including pain unrelieved with pain meds, increased or unexplained vaginal bleeding or T>100.4 Discharge Information Condition at Discharge: Stable Follow Up: Weeks Disposition/Orders: D/C to Home Scheduled Alprazolam (Xanax) 1 Mg Tablet, 1 TAB PO BID, #60 (Reported) Entered as Reported by: Farhana Smallwood on 01/04/16 0954 Last Taken: 1/2 TAB on 08/20/19 0510 Last Action: Continued on 08/20/19729 by FARHANA SALINAS Atorvastatin Calcium (Atorvastatin Calcium) 80 Mg Tablet, 40 MG PO DAILY for CONTROL LIPIDS, #30 Ref 5 (Reported) Entered as Reported by: Farhana Smallwood on 01/04/16 1122 Last Taken: Unknown Dose on 08/19/19 Last Action: Converted on 08/20/19729 by FARHANA SALINAS Metoprolol Succinate (Toprol Xl) 25 Mg Tab.er.24h, 25 MG PO HS for FOR HYPERTENSION, #30 Ref 0 (Reported) Entered as Reported by: VIC SOSA on 05/06/19 1044 Last Taken: Unknown Dose on 08/19/19 Last Action: Continued on 08/20/19729 by FARHANA SALINAS Richmond-3 Fatty Acids/Fish Oil ([place] 3 Fish Oil Softgel) 1 Each Capsule.dr, 500 MG PO DAILY for CONTROL LIPIDS, (Reported) Entered as Reported by: Farhana Smallwood on 01/04/16 1122 Last Taken: Unknown Dose on 08/01/19 Last Action: HELD on 08/20/19729 by FARHANA SALINAS Paroxetine Hcl (Paxil Cr) 25 Mg Tab.er.24h, 25 MG PO DAILY for depression , (Reported) Entered as Reported by: NOLVIA ELLIS on 08/14/19 1244 Last Taken: Unknown Dose on 08/19/19 Last Action: Converted on 08/20/19729 by FARHANA SALINAS Ranitidine Hcl (Zantac) 150 Mg Tablet, 150 MG PO BID for CONTROL GERD, (Reported) Entered as Reported by: VIC SOSA on 05/06/191043 Last Taken: Unknown Dose on 08/20/19509 Last Action: Converted on 08/20/19729 by FARHANA SALINAS Scheduled PRN Metoprolol Succinate (Toprol Xl) 50 Mg Tab.er.24h, 50 MG PO DAILY PRN for BLOOD PRESSURE CONTROL, #30 Ref 0 (Reported) Entered as Reported by: VIC SOSA on 05/06/191043 Last Taken: Unknown Dose on 08/20/19509 Last Action: Converted on 08/20/19729 by FARHANA SALINAS Patient Instructions Patient Instructions POD#1 s/p LAVH/BSO Routine PO care d/c to home later today NPV x 6 weeks Light/limited activity x 2 weeks NO driving for one week or while on narcotic pain meds keep scheduled one week follow up with me in office already has narcotic pain meds at home ok for OTC ibuprofen as needed as well call or return sooner for any other questions or concerns not limited to but including pain unrelieved with pain meds, increased or unexplained vaginal bleeding or T>100.4 Hemodynamically unstable?: No Operative site or wounds?: Yes Poss blood loss?: Yes Persistent Pain & Nausea?: No FARHANA SALINAS MD Aug 21, 2019 08:24
[2019-08-21] MEDS ORDERED: METOPROLOL SUCC 24HR ER 50 MG TAB.ER.24H. PO PRN (09:00)
[2019-08-21 09:05] VITALS: BP 111/68
[2019-08-21] MEDS: ALPRAZolam 1 MG TABLET PO SCH (09:15)
[2019-08-21] MEDS: FAMOTIDINE 20 MG TABLET. PO SCH (09:15)
[2019-08-21] MEDS: PARoxetine 20 MG TABLET PO SCH (09:16)
--- NOTE | 2019-08-24 15:07 | PATHOLOGY ---
[facility] Accession Number: [id number] . 01 Material submitted: . uterus - CERVIX, UTERUS, BILATERAL FALLOPIAN TUBE AND BILATERAL OVARIES. Modifiers: bilateral . 01 Clinical history: . DALILA III . 02 Diagnosis: Uterus, bilateral ovaries and fallopian tubes, laparoscopically-assisted vaginal hysterectomy and bilateral salpingo-oophorectomy: - Entirely submitted cervix with changes consistent with previous biopsy site, focal calcified endosalpingiosis, mild chronic inflammation, and Nabothian cysts. - Basalis endometrium. - Myometrium with adenomyosis and leiomyomata, up to 1.3 cm. - Serosal surface with focal endometriosis. - Right and left ovaries and fallopian tubes with no significant histopathologic diagnosis. - Uterine weight: 57 grams. . ([facility]:mm; 08/24/2019) [facility] 08/24/2019 1008 Local . 02 Electronically signed: . Jayy Knowles MD, Pathologist NPI- [id number] . 01 Gross description: . The specimen is received in formalin labeled "Shannon Valdes, cervix, uterus, bilateral fallopian tubes and bilateral ovaries". Received is a 57 g, 7.0 x 5.1 x 3.3 cm uterus with attached cervix and attached adnexa, weighing 4 and 3 g, left and right, respectively. The uterine serosa is dusky harris-harris in appearance with overlying white, raised areas on the posterior aspect ranging in size from 0.2 to 1.0 cm. The 0.5 cm cervical os is surrounded by pale harris, smooth to harris-harris, irregular ectocervical mucosa. The uterus is oriented using the peritoneal reflection and the entire paracervical margin is inked black. The uterus is opened laterally to reveal a pale harris, slightly corrugated endocervical canal measuring 2.0 cm in length. The endometrial cavity is triangular measuring 4.0 cm in length by 1.5 cm in width. The endometrium is pale harris to pink-harris, glistening in appearance and measures 0.1 cm in thickness. Serial sectioning reveals a harris-pink, trabeculated myometrium measuring up to 1.4 cm in thickness displaying multiple submucosal and intramural fibroids ranging in size from 0.2 to 1.3 cm in maximum dimensions. . The left adnexa consists of a fimbriated fallopian tube measuring 4.2 cm in length by up to up to 0.5 cm in diameter attached to a 2.0 x 1.1 x 1.0 cm ovary. Sectioning through the fallopian tube reveals a pinpoint to patent lumen and the fallopian tube appears grossly unremarkable. Sectioning through the ovary reveals pale harris, normal ovarian stroma. . The right adnexa consists of a fimbriated fallopian tube measuring 3.6 cm in length by up to 0.5 cm in diameter attached to a 2.1 x 1.5 x 1.1 cm ovary. Sectioning through the fallopian tube reveals a patent lumen and the fallopian tube appears grossly unremarkable. Sectioning through the ovary reveals pale harris, normal ovarian stroma. The entire cervix and additional billing customer service representative sections are submitted as follows: . A1-A3 12:00 to 3:00 cervix A4-A7 3:00 to 6:00 cervix A8-A10 6:00 to 9:00 cervix A11-A13 9:00 to 12:00 cervix A14 white raised areas on serosa A15 anterior endomyometrium A16 posterior endomyometrium A17-A18 billing customer service representative sections of fibroids A19 left adnexa A20 right adnexa. ([facility]; 08/21/2019) QA/QA 08/21/2019 1924 Local . 02 Pathologist provided ICD-10: N80.0, N72, N94.89, N88.8 . 02 CPT . 905039 Specimen Comment: A courtesy copy of this report has been sent to [phone] Specimen Comment: Report sent to Performed at: [address], [place], [place] [id number] MD Ridge Kumari MD Phone: [phone] Performed at: 02 [facility] [address] [place], [place] [id number] MD Yayo Sandoval MD Phone: [phone]
== END 2019-08-21 09:50 | disposition home or self-care (01) ==
LOC: SURG 06:03 → 3 NORTH 10:10
PROVIDERS: ADMIT Obstetrics & Gynecology; ATTEND Obstetrics & Gynecology
DX: D06.9 Carcinoma in situ of cervix, unspecified (principal); N80.1 Endometriosis of ovary
CPT/HCPCS: 36415; 58552; 80048; 85014; 86850; 86900; 86901; A7015; G0378; G0379; J0696; J1100; J2001; J2250; J2704; J2710; J3010; J3490; J7030; J7120; 88309; J2405

== ENCOUNTER → 2019-12-11 | Outpatient (CLI) | payer OTHER ==
--- NOTE | 2019-12-11 17:26 | KCIC ---
Bilateral digital screening mammograms with 3-D tomosynthesis: Reason for examination: Routine screening. Comparison is made to previous studies dated back to 09/06/2016. Bilateral mammograms in CC and oblique projections were obtained with 2-D imaging and 3-D tomosynthesis imaging on a Siemens Inspiration unit and reviewed on the workstation. Interpretation was made with the benefit of CAD. The skin and nipples show no abnormalities. No abnormal axillary lymph nodes are seen. The breast parenchyma shows scattered fatty and fibroglandular density. (Breast density: Category B.) There are small benign-appearing nodular densities seen bilaterally which are stable. There are no new dominant masses, suspicious calcifications or architectural distortion. Impression: No evidence of malignancy. Recommend routine screening. BI-RAD Category 2: Benign. "Our facility is accredited by the [employer] Mammography Program." This patient's information has been entered into a reminder system for the patient to be notified with the results of her examination and a target date for the next mammogram. Electronically signed by: Lashanda Mishra MD (12/11/2019 5:23 PM) [email or web address]
== END | disposition home or self-care (01) ==
LOC: KCIC MAMMO 14:51
PROVIDERS: ATTEND Obstetrics & Gynecology
DX: Z12.31 Encounter for screening mammogram for malignant neoplasm of breast (principal)
CPT/HCPCS: 77063; 77067

== ENCOUNTER → 2020-02-02 | Outpatient (CLI) | payer OTHER | LOC: SPEC 12:57 | PROVIDERS: ATTEND Obstetrics & Gynecology | DX: Z01.419 Encounter for gynecological examination (general) (routine) without abnormal findings (principal) | CPT/HCPCS: 87623; 88175 ==

== ENCOUNTER → 2020-02-29 | Outpatient (CLI) | payer OTHER ==
--- NOTE | 2020-03-08 12:06 | PATHOLOGY ---
[facility] Accession Number: [id number] . 01 Material submitted: . vagina - VAGINAL CUFF BIOPSY . 01 Clinician provided ICD-10: R87.622 . 02 Diagnosis: Vagina "vaginal cuff", biopsy: - Mild dysplasia (low-grade squamous intraepithelial lesion/VaIN-1); negative for high-grade dysplasia and malignancy. - Please see comment. (DAWIT:jennifer; 03/04/2020) [facility] 03/08/2020 1109 Local . 02 Comment: The case was seen in consultation with Dr. David Link who concurs with the above diagnosis. (DAWIT:jennifer; 03/04/2020) . 02 Electronically signed: . Keisha Salinas MD, Pathologist NPI- [id number] . 01 Gross description: . The specimen is received in formalin, labeled "Lucio, Shannon, vaginal cuff BX" and consists of a spiral brush producing mucoid material/possible tissue measuring 1.1 x 0.8 x 0.1 cm which is entirely submitted in A1. Due to the nature of the specimen it may not survive processing. (BRETY; 03/02/2020) SYU/SYU 03/02/2020 1328 Local . 02 Pathologist provided ICD-10: N89.0 . 02 CPT . 466885 Specimen Comment: A courtesy copy of this report has been sent to [phone] Specimen Comment: Report sent to Performed at: 01 [facility] [address], [place] [id number] MD Ridge Kumari MD Phone: [phone] Performed at: 02 [facility] [address] [place], [place] [id number] MD Yayo Sandoval MD Phone: [phone]
== END | disposition home or self-care (01) ==
LOC: SPEC 12:54
PROVIDERS: ATTEND Obstetrics & Gynecology
DX: R87.622 Low grade squamous intraepithelial lesion on cytologic smear of vagina (LGSIL) (principal)
CPT/HCPCS: 88305

== ENCOUNTER → 2020-05-12 | Outpatient (CLI) | payer OTHER | LOC: LAB 09:26 | PROVIDERS: ATTEND Internal Medicine Pulmonary Disease | DX: R51.9 Headache, unspecified (principal); R19.7 Diarrhea, unspecified; Z20.828 Contact with and (suspected) exposure to other viral communicable diseases | CPT/HCPCS: U0003 ==

== ENCOUNTER → 2020-06-15 | Outpatient (CLI) | payer OTHER | LOC: SPEC 13:32 | PROVIDERS: ATTEND Obstetrics & Gynecology | DX: R87.622 Low grade squamous intraepithelial lesion on cytologic smear of vagina (LGSIL) (principal) | CPT/HCPCS: 87623; 88175 ==

== ENCOUNTER → 2020-10-27 | Outpatient (CLI) | payer OTHER | LOC: SPEC 12:40 | PROVIDERS: ATTEND Obstetrics & Gynecology | DX: R87.620 Atypical squamous cells of undetermined significance on cytologic smear of vagina (ASC-US) (principal) | CPT/HCPCS: 88175 ==

== ENCOUNTER → 2020-12-16 | Outpatient (CLI) | payer OTHER ==
--- NOTE | 2020-12-16 17:17 | KCIC ---
BILATERAL SCREENING MAMMOGRAM, 3-D History: Routine screening. Comparison: Bilateral mammogram December 11, 2019 and prior years. Technique: MLO and CC digital tomosynthesis (3D) images obtained. Radiologist reviewed these images on dedicated workstation. Findings: Breast Tissue Density B : There are scattered areas of fibroglandular density. Mild glandular nodularity is unchanged. There are no dominant masses, suspicious microcalcifications or architectural distortion. IMPRESSION: No mammographic evidence of malignancy. Recommend routine screening. BI-RADS category 2: Benign findings. The images were reviewed with computer-aided detection. Patient information is entered into reminder system with a target due date for the next screening dedra mogram. Mammography is the most sensitive method for finding small breast cancers, but it does not detect the m all and is not a substitute for careful clinical examination. A negative mammogram does not negate a clinically suspicious finding and should not result in delay in biopsying a clinically suspicious a bnormality. "Our facility is accredited by the [employer] Mammography Program." Electronically signed by: Dwight Bernard MD (12/16/2020 5:14 PM) [facility]
== END ==
LOC: KCIC MAMMO 13:50
PROVIDERS: ATTEND Obstetrics & Gynecology
DX: Z12.31 Encounter for screening mammogram for malignant neoplasm of breast (principal)
CPT/HCPCS: 77063; 77067

== ENCOUNTER → 2021-04-28 | Outpatient (CLI) | payer OTHER ==
[2021-04-28 08:24] LABS: CALCIUM 8.9 mg/dL (8.5-10.1); CREATININE 0.7 mg/dL (0.6-1.0); GFR 87.5; POTASSIUM 4.4 mmol/L (3.5-5.1)
[2021-04-28 08:27] LABS: CHOLESTEROL/HDL RATIO 4.4
== END ==
LOC: LAB 07:43
PROVIDERS: ATTEND Family Medicine
DX: I10 Essential (primary) hypertension (principal)
CPT/HCPCS: 36415; 80048; 80061

== ENCOUNTER → 2021-05-12 | Outpatient (CLI) | payer OTHER ==
--- NOTE | 2021-05-17 14:14 | PATHOLOGY ---
[facility] Accession Number: [id number] . 01 Material submitted: . vagina - VAGINAL BIOPSY . 02 Diagnosis: Segments of squamous mucosa, vaginal biopsy: - Focal reactive squamous atypia. (JPM:[facility]; 05/17/2021) [facility] 05/17/2021 0926 Local . 02 Comment: Sections of the vaginal biopsy reveal multiple segments of squamous mucosa. There is focal reactive squamous epithelial atypia associated with intraepithelial neutrophils. The case is also examined by Dr. Torres, who has a speciality interest in BALL HOLDER pathology. She concurs with the diagnosis. (JPM:carlos; 05/17/2021) . 02 Electronically signed: . Yayo Sandoval MD, Pathologist NPI- [id number] . 01 Gross description: . The specimen is received in formalin, labeled "Lucio, Shannon, vaginal Colton". Received is light harris tissue along with mucoid material measuring 1.0 x 0.2 x 0.1 cm in aggregate dimensions. The specimen is filtered and entirely submitted in cassette A1.([facility]; 05/15/2021) [facility] 05/15/2021 1708 Local . 02 Pathologist provided ICD-10: Z03.89 . 02 CPT . 484776 Specimen Comment: A courtesy copy of this report has been sent to [phone] Specimen Comment: Report sent to Performed at: 01 [facility] [address] [facility] [address] [facility] [address], [place] [id number] MD Eran Torres MD Phone: [phone] Performed at: 02 [facility] [address] [place], [place] [id number] MD Yayo Sandoval MD Phone: [phone]
== END ==
LOC: SPEC 16:01
PROVIDERS: ATTEND Nurse Practitioner Women's Health
DX: R87.620 Atypical squamous cells of undetermined significance on cytologic smear of vagina (ASC-US) (principal)
CPT/HCPCS: 88305

== ENCOUNTER → 2021-08-29 | Outpatient (CLI) | payer OTHER ==
[~2021-08-29] MED LIST changes: -PARO25TA11 PO; +PARO25TA18 PO
[2021-08-29 08:22] LABS: BASO # 0.1 x10^3/uL (0.0-0.2); BASO % 2 % (0-3); EOS # 0.1 x10^3/uL (0.0-0.7); EOS % 2 % (0-3); HEMATOCRIT 39.2 % (36.0-47.0); HEMOGLOBIN 13.2 g/dL (12.0-15.5); LYMPH # 1.6 x10^3/uL (1.0-4.8); LYMPH % 24 % (24-48); MEAN CORPUSCULAR HEMOGLOBIN 30 pg (25-35); MEAN CORPUSCULAR HGB CONC 34 g/dL (31-37); MEAN CORPUSCULAR VOLUME 90 fL (79-100); MONO # 0.6 x10^3/uL (0.0-1.1); MONO % 9 % (0-9); NEUT # 4.5 x10^3/uL (1.8-7.7); NEUT % 65 % (31-73); PLATELET COUNT 211 x10^3/uL (140-400); RED BLOOD COUNT 4.37 x10^6/uL (3.50-5.40); WHITE BLOOD COUNT 6.9 x10^3/uL (4.0-11.0)
[2021-08-29 08:26] LABS: CALCIUM 8.6 mg/dL (8.5-10.1); CREATININE 0.8 mg/dL (0.6-1.0); POTASSIUM 4.4 mmol/L (3.5-5.1); TOTAL BILIRUBIN 0.2 mg/dL (0.2-1.0); TOTAL PROTEIN 7.9 g/dL (6.4-8.2)
== END ==
LOC: LAB 07:37
PROVIDERS: ATTEND Physician Assistant
DX: R31.9 Hematuria, unspecified (principal)
CPT/HCPCS: 36415; 80053; 85025

== ENCOUNTER → 2021-09-01 | Outpatient (CLI) | payer OTHER ==
[~2021-09-01] MED LIST changes: +CONTRAST GIVEN. MC PRN; +IOHEXOL 300 MG/ML 100ML VIAL. IV ONE
--- NOTE | 2021-09-03 19:17 | RAD ---
Study: CT abdomen/pelvis with and without intravenous contrast Indication: Hematuria. Comparison: CT chest 02/15/2017; CT abdomen/pelvis 12/19/2015 Technique: Helical CT imaging performed of the abdomen and pelvis performed prior to and after the in travenous administration of 75 cc Omnipaque 300. Delayed imaging performed per renal mass protocol. S agittal and coronal reformats were obtained. One or more of the following individualized dose reduction techniques were utilized for this examinat ion: 1. Automated exposure control 2. Adjustment of the mA and/or kV according to patient size 3. Use of iterative reconstruction technique. Findings: A few bilateral renal cysts. No renal mass. No bladder wall mass or evidence for a ureteral mass. 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 Nephrolithiasis within the lower pole ureter at its proximal aspect with the stone measuring up to 3 mm. Nonobstructing intrarenal stone at the lower mika e on the left measuring up to 8 mm. Mild intrarenal collecting system at the lower pole no stone or c ollecting system dilatation on the right. Multiple noncalcified nodules are unchanged or smaller from the 2017 comparison. Several granulomas. Hepatic steatosis. Absent gallbladder. Within normal limits biliary tree. Unremarkable pancreas, sple en and adrenal glands. Absent uterus. No adnexal mass. Unremarkable colon, appendix, small bowel and stomach. No lymphadenopathy. Facet arthrosis greatest at L4-L5. No acute or aggressive abnormality. Impression: 1. 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 Additional nonobstructing intrarenal stone at the lower pole on the left measuring 8 mm. 2. Several small renal cysts. No renal or bladder mass. No findings to indicate a malignant strictur e at the site of the 3 mm stone. 3. Hepatic steatosis. 4. Several unchanged noncalcified nodules at the lower lungs in relation to a 2017 CT chest. Electronically signed by: SULY RUIZ MD (09/03/2021 7:14 PM) [facility]
== END ==
LOC: CT 11:24
PROVIDERS: ATTEND Physician Assistant
DX: N20.0 Calculus of kidney (principal); N28.1 Cyst of kidney, acquired; R31.9 Hematuria, unspecified; K76.0 Fatty (change of) liver, not elsewhere classified; R91.8 Other nonspecific abnormal finding of lung field; J84.10 Pulmonary fibrosis, unspecified; M47.816 Spondylosis without myelopathy or radiculopathy, lumbar region
CPT/HCPCS: 74178; Q9967

== ENCOUNTER → 2021-10-31 | Outpatient (CLI) | payer OTHER ==
[~2021-10-31] MED LIST changes: -CONTRAST GIVEN. MC PRN; -IOHEXOL 300 MG/ML 100ML VIAL. IV ONE
--- NOTE | 2021-10-31 08:38 | RAD ---
EXAM: XR ABDOMEN 1V 10/31/2021 7:42 AM CLINICAL INDICATION: Calculus of kidney COMPARISON: CT abdomen and pelvis 10/27/2021 TECHNIQUE: AP view of the abdomen FINDINGS: There is a 5 mm calculus in the inferior left renal pole. Possible additional small calcul i in the left kidney. No definite ureterolithiasis. There are phleboliths in the pelvis. Bowel gas pa ttern is nonobstructive. There are surgical clips in the right upper quadrant and right lower quadran t. IMPRESSION: Left nephrolithiasis. No definite ureteral calculus is seen. Electronically signed by: Елена Barrett MD (10/31/2021 8:36 AM) [id number]
== END ==
LOC: RAD 07:33
PROVIDERS: ATTEND Urology
DX: N20.0 Calculus of kidney (principal); Z98.890 Other specified postprocedural states
CPT/HCPCS: 74018